=== PATIENT | male | born 1975 | race Caucasian/White ===

== ENCOUNTER 2017-07-26 12:56 | Emergency (ER) | payer OTHER ==
[~2017-07-26] VITALS: Ht 182.9 cm; Wt 152.5 kg
[2017-07-26 13:36] LABS: HEMATOCRIT 42.5 % (38.0-50.0); HEMOGLOBIN 14.4 G/DL (12.5-16.6); MCH 31.7 PG (29.0-34.0); MCHC 33.9 G/DL (30.0-36.0); MCV 93.6 FL (86-99); PLATELET COUNT 212 K/uL (156-360); RBC DIS.WIDTH-SD 44.3 % (39-53); RED BLOOD COUNT 4.54 M/uL (4.00-5.50)
[2017-07-26 13:44] LABS: ALBUMIN 4.2 g/dL (3.2-4.8)
[2017-07-26 13:45] LABS: CHLORIDE 106 mEq/L (99-109); POTASSIUM 4.6 mEq/L (3.7-5.4); SODIUM 140 mEq/L (136-147)
[2017-07-26 13:47] LABS: GLUCOSE 87 mg/dL (70-99); TOTAL PROTEIN 7.5 g/dL (6.4-8.3)
[2017-07-26 13:49] LABS: TOTAL BILIRUBIN 0.5 mg/dL (0.0-1.0)
[2017-07-26 13:50] LABS: ALKALINE PHOSPHATASE 65 IU/L (3-129)
[2017-07-26 13:51] LABS: CREATININE 1.4 mg/dL (0.6-1.3)
[2017-07-26 13:52] LABS: AST (GOT) 30 IU/L (2-34); UREA NITROGEN (BUN) 12 mg/dL (9-23)
[2017-07-26 13:54] LABS: ALT (GPT) 41 IU/L (3-49); GFR ESTIMATE (CALCULATED) 59 mL/min/ (58.99-99999)
[2017-07-26] MEDS ORDERED: ZITHROMAX Z-PA250 MG PO (14:22)
[2017-07-26] MEDS ORDERED: VENTOLIN HFA18 GM IH (14:22)
[2017-07-26 14:31] VITALS: BP 171/104
== END 2017-07-26 14:33 | disposition home or self-care (01) ==
LOC: EME 12:56
PROVIDERS: Nurse Practitioner Family
DX: J06.9 Acute upper respiratory infection, unspecified (principal); I10 Essential (primary) hypertension; Z88.0 Allergy status to penicillin; Z88.5 Allergy status to narcotic agent
CPT/HCPCS: 71045; 80053; 85027; 94640; 99281; 99284